=== PATIENT | male | born 1935 | race Caucasian/White ===

== ENCOUNTER 2017-01-27 16:01 | Inpatient (IN) ==
[2017-01-27] MEDS ORDERED: SODIUM CHLORIDE 0.9% 1,000 ML IV STA (16:29)
[2017-01-27] MEDS ORDERED: SODIUM CHLORIDE 0.9% 1,900 ML IV ONE (16:29)
[2017-01-27] MEDS ORDERED: PIPERACILLIN/TAZOBACTAM 3,375 MG in SODIUM CHLORIDE 0.9% 100 ML IV SCH (16:30)
[2017-01-27] MEDS ORDERED: SODIUM CHLORIDE 0.9% 1,000 ML IV SCH (16:30)
[2017-01-27 16:49] LABS: Basophils % 0.2 % (0.0-0.8); Hematocrit 39.1 VOL% (42.0-52.0); Hemoglobin 13.3 GM/DL (14.0-18.0); Immature Granulocytes % 0.2 %; Immature Granulocytes Absolute 0.01 #; Lymphocytes # 0.1 10*3/uL (1.4-4.0); Lymphocytes % 1.6 % (21.2-54.2); Mean Corpuscular Hemoglobin 33 PG (27-34); Mean Corpuscular Volume 97.5 FL (87-102); Mean Platelet Volume 8.3 FL (9.6-12.0); Monocytes % 0.2 % (1.7-12.7); Neutrophils # 4.7 10*3/uL (1.4-7.4); Neutrophils % 97.8 % (38.7-73.9); Platelet Count 70 T/CUMM (130-400); Red Blood Count 4.01 MC/CUMM (3.8-5.5); Red Cell Distribution Width 12.1 % (9.3-17.3); White Blood Count 4.9 T/CUMM (4-12)
[2017-01-27] MEDS ORDERED: PIPERACILLIN/TAZOBACTAM 3,375 MG VIAL IV ONE (16:50)
[2017-01-27 16:57] LABS: INR 1.1; PT Patient Result 11.3 SECS; Partial Thromboplastin Time 23.6 SECS (0-40)
[2017-01-27] MEDS ORDERED: VANCOMYCIN INJ 1,000 MG in SODIUM CHLORIDE 0.9% 250 ML IV SCH (17:00)
[2017-01-27 17:12] LABS: ABG Base Excess -0.9 MMOL/L (-2.5-2.5); ABG HCO3 23.7 MMOL/L (20-26); ABG Oxygen Saturation 99.5 % (95-100); ABG PH 7.409 (7.35-7.45); ABG TCO2 20.8 MMOL/L (23-27)
[2017-01-27 17:12] LABS: Albumin 3.3 G/DL (3.4-5.0); Bilirubin,Total 0.7 MG/DL (0.2-1.0); Calcium 8.2 MG/DL (8.5-10.1); Magnesium 1.6 MG/DL (1.8-2.4); Osmolality,Calculated 287.1 MOS/KG (273-304); Potassium 3.4 MMOL/L (3.5-5.1); Total Protein 6.7 G/DL (6.4-8.3); Troponin I Only 0.015 NG/ML (0.00-0.045)
[2017-01-27] MEDS ORDERED: MAGNESIUM SULF RIDER 2 GM in PREMIX 1 EACH IV STA (17:30)
[2017-01-27] MEDS ORDERED: VANCOMYCIN 1,000 MG VIAL ONE (17:31)
[2017-01-27 17:42] LABS: Apearance,Urine CLEAR (Clear); Bilirubin,Urine Negative (Negative); Blood, Urine Moderate mg/dL (Negative); Glucose,Urine (UA) Negative (Negative); Hyaline Casts,Urine 1 /LPF (0-3); Ketones,Urine Negative (Negative); Mucus,Urine Occasional /LPF (Occasional); Nitrite,Urine Negative (Negative); Protein,Urine Negative; RBC,Urine 14 /HPF (0-4); Squamous Epithelial Cell,Urine Occasional /HPF (0-10); Urine Color Yellow (Yellow); Urine Specific Gravity 1.009 (1.001-1.035); Urine Urobilinogen < 2.0 EU/DL (0.2-1.0); WBC,Urine 10 /HPF (0-6)
[2017-01-27] MEDS ORDERED: ONDANSETRON 4 MG/2 ML VIAL IV PRN (18:01)
[2017-01-27] MEDS ORDERED: MAGNESIUM SULF RIDER 2 GM in PREMIX 1 EACH IV ONE (18:01)
[2017-01-27] MEDS ORDERED: ACETAMINOPHEN 325 MG TABLET PO PRN ×2 (18:01→18:16)
[2017-01-27] MEDS ORDERED: ENOXAPARIN 30 MG/0.3 ML SYRINGE SUBCUT SCH (18:30)
[2017-01-27] MEDS ORDERED: NOREPINEPHRINE 8 MG in SODIUM CHLORIDE 0.9% 242 ML IV SCH (20:00)
[2017-01-27] MEDS: MEROPENEM 1,000 MG in SYRINGE 1 EACH IV SCH (20:42)
[2017-01-27] MEDS: SODIUM CHLOR 0.9% KCL 40 MEQ 40 MEQ/1,000 ML BAG IV SCH (20:43)
[2017-01-27] MEDS: LATANOPROST 0.005% OPH SOLN 2.5 ML BOTTLE BOTH EYES SCH (20:44)
[2017-01-28] MEDS: MEROPENEM 1,000 MG in SYRINGE 1 EACH IV SCH ×3 (03:01→19:11)
[2017-01-28 04:55] LABS: Basophils % 0.2 % (0.0-0.8); Eosinophils % 0.1 % (0.00-10.9); Hematocrit 36.2 VOL% (42.0-52.0); Immature Granulocytes % 0.4 %; Immature Granulocytes Absolute 0.04 #; Lymphocytes # 0.5 10*3/uL (1.4-4.0); Lymphocytes % 4.6 % (21.2-54.2); Mean Corpuscular HGB Conc 33.1 GM/DL (32-36); Mean Corpuscular Hemoglobin 33 PG (27-34); Mean Corpuscular Volume 100.6 FL (87-102); Mean Platelet Volume 8.7 FL (9.6-12.0); Monocytes # 0.3 10*3/uL (0.11-0.8); Neutrophils # 10.1 10*3/uL (1.4-7.4); Neutrophils % 91.7 % (38.7-73.9); Red Cell Distribution Width 12.4 % (9.3-17.3)
[2017-01-28 05:15] LABS: Platelet Count 60 T/CUMM (130-400)
[2017-01-28 05:27] LABS: Lactic Acid 1.1 MMOL/L (0.4-2.0)
[2017-01-28 05:36] LABS: Albumin 2.6 G/DL (3.4-5.0); Bilirubin,Total 0.8 MG/DL (0.2-1.0); Calcium 7.5 MG/DL (8.5-10.1); Osmolality,Calculated 292.6 MOS/KG (273-304); Potassium 4.1 MMOL/L (3.5-5.1); Total Protein 5.4 G/DL (6.4-8.3)
[2017-01-28 05:40] LABS: Band Neutrophils 5 % (0-10); Hypochromasia 1+; Lymphocytes 6 % (20-55); Microcytosis Slight; Platelet Estimate Decreased; Segmented Neutrophils 87 % (50-85); Total Cells Counted 100
[2017-01-28] MEDS: SODIUM CHLOR 0.9% KCL 40 MEQ 40 MEQ/1,000 ML BAG IV SCH (05:59)
[2017-01-28] MEDS: DONEPEZIL 10 MG TABLET PO SCH (08:43)
[2017-01-28] MEDS: ASPIRIN EC 81 MG TABLET PO SCH (08:43)
[2017-01-28] MEDS ORDERED: QUEtiapine 25 MG TABLET PO SCH (09:00)
[2017-01-28] MEDS: SODIUM CHLORIDE 23.4% CONC INJ 38.5 MEQ in STERILE WATER INJ 1,000 ML IV SCH (10:31)
[2017-01-28] MEDS: DOPamine 800 MG/250 ML PREMIX IV SCH (10:47)
[2017-01-28] MEDS ORDERED: HALOPERIDOL 5 MG/ML AMP IV PRN (14:42)
[2017-01-28] MEDS ORDERED: VANCOMYCIN INJ 1,000 MG in SODIUM CHLORIDE 0.9% 250 ML IV SCH (17:30)
[2017-01-28] MEDS: LATANOPROST 0.005% OPH SOLN 2.5 ML BOTTLE BOTH EYES SCH (20:17)
[2017-01-29] MEDS: SODIUM CHLORIDE 23.4% CONC INJ 38.5 MEQ in STERILE WATER INJ 1,000 ML IV SCH (00:07)
[2017-01-29] MEDS: MEROPENEM 1,000 MG in SYRINGE 1 EACH IV SCH ×3 (02:42→18:27)
[2017-01-29] MEDS: ASPIRIN EC 81 MG TABLET PO SCH (09:38)
[2017-01-29] MEDS: DONEPEZIL 10 MG TABLET PO SCH (09:38)
[2017-01-29] MEDS: DOPamine 800 MG/250 ML PREMIX IV SCH (12:04)
[2017-01-29] MEDS ORDERED: SODIUM CHLORIDE 0.45% 1,000 ML IV SCH (16:00)
[2017-01-29] MEDS: LATANOPROST 0.005% OPH SOLN 2.5 ML BOTTLE BOTH EYES SCH (21:23)
[2017-01-30] MEDS: MEROPENEM 1,000 MG in SYRINGE 1 EACH IV SCH ×2 (04:38→11:44)
[2017-01-30 04:45] LABS: Basophils % 0.2 % (0.0-0.8); Eosinophils # 0.1 10*3/uL (0.0-0.87); Eosinophils % 1.5 % (0.00-10.9); Hematocrit 34.7 VOL% (42.0-52.0); Hemoglobin 12.1 GM/DL (14.0-18.0); Immature Granulocytes % 0.5 %; Immature Granulocytes Absolute 0.03 #; Lymphocytes # 0.9 10*3/uL (1.4-4.0); Lymphocytes % 14.7 % (21.2-54.2); Mean Corpuscular HGB Conc 34.9 GM/DL (32-36); Mean Corpuscular Hemoglobin 33 PG (27-34); Mean Corpuscular Volume 95.6 FL (87-102); Mean Platelet Volume 9.2 FL (9.6-12.0); Monocytes # 0.4 10*3/uL (0.11-0.8); Monocytes % 6.7 % (1.7-12.7); Neutrophils # 4.6 10*3/uL (1.4-7.4); Neutrophils % 76.4 % (38.7-73.9); Platelet Count 67 T/CUMM (130-400); Red Blood Count 3.63 MC/CUMM (3.8-5.5); Red Cell Distribution Width 12.1 % (9.3-17.3)
[2017-01-30 05:08] LABS: Calcium 8.3 MG/DL (8.5-10.1); Osmolality,Calculated 281.1 MOS/KG (273-304); Potassium 3.9 MMOL/L (3.5-5.1)
[2017-01-30 06:23] LABS: Lymphocytes 13 % (20-55); Segmented Neutrophils 86 % (50-85)
[2017-01-30 06:24] LABS: Platelet Estimate Decreased; Total Cells Counted 100
[2017-01-30] MEDS: DONEPEZIL 10 MG TABLET PO SCH (09:34)
[2017-01-30] MEDS: ASPIRIN EC 81 MG TABLET PO SCH (09:34)
[2017-01-30] MEDS ORDERED: FUROSEMIDE 40 MG/4 ML VIAL IV ONE (10:44)
[2017-01-30] MEDS: cefTRIAXone 1,000 MG in SYRINGE 1 EACH IV SCH (17:50)
[2017-01-30] MEDS: LATANOPROST 0.005% OPH SOLN 2.5 ML BOTTLE BOTH EYES SCH (20:05)
[2017-01-31] MEDS: DONEPEZIL 10 MG TABLET PO SCH (10:21)
[2017-01-31] MEDS: ASPIRIN EC 81 MG TABLET PO SCH (10:22)
[2017-01-31] MEDS ORDERED: POTASSIUM CHLORIDE 20 MEQ TABLET PO ONE (12:57)
[2017-01-31] MEDS: cefTRIAXone 1,000 MG in SYRINGE 1 EACH IV SCH (14:45)
[2017-01-31] MEDS: LATANOPROST 0.005% OPH SOLN 2.5 ML BOTTLE BOTH EYES SCH (20:32)
[2017-02-01] MEDS: DONEPEZIL 10 MG TABLET PO SCH (10:42)
[2017-02-01] MEDS: ASPIRIN EC 81 MG TABLET PO SCH (10:42)
[2017-02-01] MEDS: cefTRIAXone 1,000 MG in SYRINGE 1 EACH IV SCH (15:38)
[2017-02-01 16:38] VITALS: BP 114/76
== END 2017-02-01 16:10 | disposition hospice, inpatient (51) | DRG 871 ==
LOC: EDUNIT# → EDBD → N.ED 16:01 → SUATTDRO 17:59 → N.EDINP 17:59 → N.CC 19:01 → N.3E 01-29 13:04
PROVIDERS: ADMIT Internal Medicine; ATTEND Internal Medicine